=== PATIENT | female | born 1985 | race Caucasian/White ===

== ENCOUNTER 2017-02-04 03:02 | Emergency (ER) | payer BC ==
--- NOTE | 2017-02-04 03:27 | PDOC ---
History of Present Illness - General History Source: Patient Exam Limitations: No Limitations - History of Present Illness Initial Comments: 02/04/17 03:36 The patient is a 34-year-old female, with a significant past medical history of connective tissue disease, who presents to the ED with abdominal pain that started last night. Pt reports that she went to the movies last night and had some popcorn. Her pain began around 10 PM last night. Her pain is located in her lower abdomen diffusely. She denies any recent sick contacts. Pts friend also had some of the popcorn and does not report having any symptoms. Pts last period was earlier this month. She reports having two normal stools today. The patient denies having any urinary symptoms. <Yeni Herron - Last Filed: 02/04/17 03:36> - General History Source: Patient <SandipRonald rodriguez - Last Filed: 02/04/17 06:33> - General Chief Complaint: Pain, Acute Stated Complaint: ABDOMINAL PAIN Time Seen by Provider: 02/04/17 03:24 Past History <Yeni Herron - Last Filed: 02/04/17 03:36> - Psycho/Social/Smoking Cessation Hx Suicidal Ideation: No Smoking History: Never smoked Have you smoked in the past 12 months: No Information on smoking cessation initiated: No Hx Alcohol Use: No Drug/Substance Use Hx: No <Ronald Jones - Last Filed: 02/04/17 06:33> - Past Medical History Allergies/Adverse Reactions: Allergies Allergy/AdvReac Type Severity Reaction Status Date / Time No Known Allergies Allergy Verified 02/04/17 03:22 Home Medications: Ambulatory Orders Celecoxib 0 mg PO DAILY 02/04/17 Ibuprofen 800 mg PO TID #30 tablet 02/04/17 Oxycodone HCl/Acetaminophen [Percocet 5-325 mg Tablet] 1 - 2 tab PO Q6H #20 tablet MDD 4 02/04/17 Review of Systems - Review of Systems Able to Perform ROS?: Yes Comments:: 02/04/17 03:36 CONSTITUTIONAL: Absent: fever, chills, diaphoresis, generalized weakness, malaise, loss of appetite HEENT: Absent: rhinorrhea, nasal congestion, throat pain, throat swelling, difficulty swallowing, mouth swelling, ear pain, eye pain, visual Changes CARDIOVASCULAR: Absent: chest pain, syncope, palpitations, irregular heart rate, lightheadedness , peripheral edema RESPIRATORY: Absent: cough, shortness of breath, dyspnea with exertion, orthopnea, wheezing, stridor, hemoptysis GASTROINTESTINAL: Present: abdominal pain Absent: abdominal distension, nausea, vomiting, diarrhea, constipation, melena, hematochezia GENITOURINARY: Absent: dysuria, frequency, urgency, hesitancy, hematuria, flank pain, genital pain MUSCULOSKELETAL: Absent: myalgia, arthralgia, joint swelling SKIN: Absent: rash, itching, pallor HEMATOLOGIC/IMMUNOLOGIC: Absent: easy bleeding, easy bruising, lymphadenopathy, frequent infections ENDOCRINE: Absent: unexplained weight gain, unexplained weight loss, heat intolerance, cold intolerance NEUROLOGIC: Absent: headache, focal weakness or paresthesias, dizziness, unsteady gait, seizure, mental status changes, bladder or bowel incontinence PSYCHIATRIC: Absent: anxiety, depression, suicidal or homicidal ideation, hallucinations. <Yeni Herron - Last Filed: 02/04/17 03:36> *Physical Exam - Vital Signs Last Vital Signs Temp Pulse Resp BP Pulse Ox 98.7 F 80 20 135/78 99 02/04/17 03:22 02/04/17 03:22 02/04/17 03:22 02/04/17 03:22 02/04/17 03:22 - Physical Exam Comments: 02/04/17 03:37 GENERAL: +Mild distress. Well developed, well nourished. Awake and alert. Normocephalic, atraumatic. PERRLA, EOMI. No conjunctival pallor. Sclera are non- icteric. Moist mucous membranes. Oropharynx is clear. NECK: Supple. Full ROM. No JVD. Carotid pulses 2+ and symmetric, without bruits. No thyromegaly. No lymphadenopathy. CARDIOVASCULAR: Regular rate and rhythm. No murmurs, rubs, or gallops. Distal pulses are 2+ and symmetric. PULMONARY: No evidence of respiratory distress. Lungs clear to auscultation bilaterally. No wheezing, rales or rhonchi. ABDOMINAL: +Abdomen is minimally tender. Soft. Non-distended. No rebound or guarding. No organomegaly. Normoactive bowel sounds. MUSCULOSKELETAL Normal range of motion at all joints. No bony deformities or tenderness. No CVA tenderness. EXTREMITIES: No cyanosis. No clubbing. No edema. No calf tenderness. SKIN: Warm and dry. Normal capillary refill. No rashes. No jaundice. NEUROLOGICAL: Alert, awake, appropriate. PSYCHIATRIC: Cooperative. Good eye contact. Appropriate mood and affect. <Yeni Herron - Last Filed: 02/04/17 03:36> - Vital Signs Last Vital Signs Temp Pulse Resp BP Pulse Ox 98.7 F 80 20 135/78 99 02/04/17 03:22 02/04/17 03:22 02/04/17 03:22 02/04/17 03:22 02/04/17 03:22 <Ronald Jones - Last Filed: 02/04/17 06:33> ED Treatment Course - LABORATORY CBC & Chemistry Diagram: 02/04/17 04:21 02/04/17 04:21 <Ronald Jones - Last Filed: 02/04/17 06:33> Medical Decision Making - Medical Decision Making 02/04/17 06:30 Dr. Jones: The scribe's documentation has been prepared under my direction and personally reviewed by me in its entirery. I confirm that the note above accurately reflects all work, treatment, procedures, and medical decision making performed by me. <Ronald Jones - Last Filed: 02/04/17 06:33> *DC/Admit/Observation/Transfer - Attestations Scribe Attestion: 02/04/17 03:40 Documentation prepared by Yeni Herron, acting as medical typist for Ronald Jones MD. <Yeni Herron - Last Filed: 02/04/17 03:36> - Discharge Dispostion Admit: No <Ronald Jones - Last Filed: 02/04/17 06:33> Diagnosis at time of Disposition: Umbilical hernia Qualifiers: Obstruction and gangrene presence: without obstruction or gangrene Qualified Code(s): K42.9 - Umbilical hernia without obstruction or gangrene - Discharge Dispostion Disposition: HOME Condition at time of disposition: Stable - Prescriptions Prescriptions: Ibuprofen 800 mg PO TID #30 tablet Oxycodone HCl/Acetaminophen [Percocet 5-325 mg Tablet] 1 - 2 tab PO Q6H #20 tablet MDD 4 - Referrals Referrals: Simone Emmanuel MD [Staff Physician] - Chapincito Alvarez MD [Staff Physician] - - Patient Instructions Printed Discharge Instructions: DI Umbilical Hernia-Child - Post Discharge Activity Work/School Note: Back to Work
[2017-02-04] MEDS ORDERED: ONDANSETRON 4 MG/2 ML VIAL IVPUSH STA (03:28)
[2017-02-04] MEDS ORDERED: SODIUM CHLORIDE 1,000 ML IV STA (03:28)
[2017-02-04] MEDS ORDERED: PANTOPRAZOLE SODIUM 40 MG in SODIUM CHLORIDE 100 ML IVPB ONE (03:28)
[2017-02-04] MEDS ORDERED: ONDANSETRON 4 MG/2 ML VIAL ONE (03:52)
[2017-02-04] MEDS ORDERED: PANTOPRAZOLE SODIUM 100 ML IVPB ONE (03:52)
[2017-02-04 04:11] VITALS: BP 135/78; PULSE 80; TEMP 98.7; BMI 34.9
[2017-02-04] MEDS ORDERED: KETOROLAC TROMETHAMINE 30 MG/1 ML VIAL IVPUSH ONE (04:21)
[2017-02-04] MEDS ORDERED: KETOROLAC TROMETHAMINE 30 MG/1 ML VIAL ONE (04:23)
[2017-02-04 04:27] LABS: BASOPHIL 0.2 % (0-2.0); EOSINOPHIL 0.8 % (0-4.5); MCH 27.1 pg (25.7-33.7); MCHC 32.6 g/dl (32.0-36.0); MEAN CELL VOLUME 83.4 fl (80-96); MEAN PLT VOLUME 8.7 fl (7.5-11.1); NEUTROPHILS 80.2 % (42.8-82.8); PLATELET COUNT 270 K/MM3 (134-434); RDW 13.1 % (11.6-15.6); WHITE BLOOD COUNT 11.9 K/mm3 (4.0-10.0)
[2017-02-04] MEDS ORDERED: morphine CARPU-JECT 2 MG/1 ML DISP.SYRIN IVPUSH ONE (04:47)
[2017-02-04 04:48] LABS: AMYLASE 76 U/L (25-115); ANION GAP 9 (8-16); BILIRUBIN,TOTAL 0.3 mg/dL (0.2-1.0); CALCIUM 8.7 mg/dL (8.5-10.1); CO2 25 mmol/L (21-32); CREATININE 0.7 mg/dL (0.55-1.02); GLUCOSE,RANDOM 127 mg/dL (74-106); MAGNESIUM 2.2 mg/dL (1.8-2.4); SGOT/AST 17 U/L (15-37); SGPT/ALT 27 U/L (12-78); TOT PROT 8.2 g/dl (6.4-8.2)
[2017-02-04 04:49] LABS: ALK PHOS 102 U/L (45-117)
[2017-02-04] MEDS ORDERED: morphine CARPU-JECT 2 MG/1 ML DISP.SYRIN ONE (04:50)
[2017-02-04] MEDS ORDERED: morphine CARPU-JECT 4 MG/1 ML DISP.SYRIN ONE (04:50)
[2017-02-04 06:26] LABS: URINE APPEARANCE CLEAR; URINE BILIRUBIN NEGATIVE (NEGATIVE); URINE BLOOD NEGATIVE (NEGATIVE); URINE COLOR COLORLESS; URINE GLUCOSE (UA) NEGATIVE (NEGATIVE); URINE KETONE NEGATIVE (NEGATIVE); URINE LEUK ESTERASE NEGATIVE (NEGATIVE); URINE NITRITE NEGATIVE (NEGATIVE); URINE PROTEIN NEGATIVE (NEGATIVE); URINE UROBILINOGEN NEGATIVE mg/dL (0.2-1.0)
== END 2017-02-04 06:41 | disposition home or self-care (01) ==
LOC: JER 03:02
PROC: 3E033GC Introduction of Other Therapeutic Substance into Peripheral Vein, Percutaneous Approach (ICD-10-PCS; principal; 2017-02-04)
PROC: 3E033NZ Introduction of Analgesics, Hypnotics, Sedatives into Peripheral Vein, Percutaneous Approach (ICD-10-PCS; 2017-02-04)
PROC: 3E033GC Introduction of Other Therapeutic Substance into Peripheral Vein, Percutaneous Approach (ICD-10-PCS; 2017-02-04)
PROC: 3E0333Z Introduction of Anti-inflammatory into Peripheral Vein, Percutaneous Approach (ICD-10-PCS; 2017-02-04)
DX: K42.9 Umbilical hernia without obstruction or gangrene (principal)
CPT/HCPCS: 36415; 74176-TC; 80053; 81003; 82150; 83690; 83735; 84703; 85025; 99283-25

== ENCOUNTER 2017-03-06 17:41 | Emergency (ER) | payer BC ==
[2017-03-06 18:15] LABS: PH,URINE 8.5 (4.5-8); URINE APPEARANCE Clear; URINE BILIRUBIN Negative (NEGATIVE); URINE BLOOD 1+ (NEGATIVE); URINE GLUCOSE (UA) Negative (NEGATIVE); URINE KETONE Negative (NEGATIVE); URINE LEUK ESTERASE Negative (NEGATIVE); URINE NITRITE Negative (NEGATIVE); URINE UROBILINOGEN 0.2 (0.2-1.0)
[2017-03-06 18:16] LABS: URINE COLOR YELLOW; URINE PROTEIN 1+ (NEGATIVE)
[2017-03-06 18:22] VITALS: BP 127/88; PULSE 90; TEMP 97.9; BMI 34.9
--- NOTE | 2017-03-06 18:30 | PDOC ---
History of Present Illness - General Chief Complaint: Pain Stated Complaint: ABD PAIN Time Seen by Provider: 03/06/17 18:04 - History of Present Illness Initial Comments: 03/06/17 18:35 Ms. Faye is a 31 year old female with a significant past medical history of Mixed connective tissue diseas ([id number] positive) who presents to the emergency department with a recent history of rash and fevers starting tuesday after sun exposure on sulfasalazine on a recent vacation and stomach pain today. She says that the rash and fever began to hotrencia yesterday after she was started on a prednisone taper at urgent care. Today she represented to the urgent care for increasing abdominal pain where she was given 60mg of solumedrol and told to present to the ER for abdominal pain F/U. The patient denies chest pain, shortness of breath, headache and dizziness. Denies fever, chills, nausea, vomit, diarrhea and constipation. Denies dysuria, frequency, urgency and hematuria. Allergies: Sulfasalazine Past surgical history: None Social history: Denies PMD - Juany Hernandez Past History - Past Medical History Allergies/Adverse Reactions: Allergies Allergy/AdvReac Type Severity Reaction Status Date / Time sulfasalazine AdvReac Severe SUN BURN Verified 03/06/17 18:15 Home Medications: Ambulatory Orders Cyclobenzaprine HCl [Flexeril 10 mg] 10 mg PO BID PRN 03/06/17 Omeprazole 10 mg PO DAILY 03/06/17 Prednisone [Deltasone] 20 mg PO ASDIR 03/06/17 - Psycho/Social/Smoking Cessation Hx Suicidal Ideation: No Smoking History: Never smoked Have you smoked in the past 12 months: No Hx Alcohol Use: No Drug/Substance Use Hx: No Substance Use Type: None Review of Systems - Review of Systems Comments:: 03/06/17 18:35 GENERAL/CONSTITUTIONAL: No fever or chills. No weakness. HEAD, EYES, EARS, NOSE AND THROAT: No change in vision. No ear pain or discharge. No sore throat. CARDIOVASCULAR: No chest pain or shortness of breath RESPIRATORY: No cough, wheezing, or hemoptysis. GASTROINTESTINAL: +Increasing stomach pain throughout the day from 1/10 pain upon waking up to currently feeling like someone is "drilling in" to her stomach. No nausea, vomiting, diarrhea or constipation. GENITOURINARY: No dysuria, frequency, or change in urination. MUSCULOSKELETAL: No joint or muscle swelling or pain. No neck or back pain. SKIN: No rash NEUROLOGIC: No headache, vertigo, loss of consciousness, or change in strength/ sensation. ENDOCRINE: No increased thirst. No abnormal weight change HEMATOLOGIC/LYMPHATIC: No anemia, easy bleeding, or history of blood clots. ALLERGIC/IMMUNOLOGIC: Rash along both arms where she says she was exposed to the sun. Is not itchy or painful and has improved from yesterday. *Physical Exam - Physical Exam Comments: 03/06/17 18:35 GENERAL: Awake, alert, and fully oriented, in no acute distress HEAD: No signs of trauma, normocephalic, atraumatic EYES: PERRLA, EOMI, sclera anicteric, conjunctiva clear ENT: Auricles normal inspection, hearing grossly normal, nares patent, oropharynx clear without exudates. Moist mucosa NECK: Normal ROM, supple, no lymphadenopathy, JVD, or masses LUNGS: No distress, speaks full sentences, clear to auscultation bilaterally HEART: Regular rate and rhythm, normal S1 and S2, no murmurs, rubs or gallops, peripheral pulses normal and equal bilaterally. ABDOMEN: +Tender in RUQ, RLQ, LUQ. Soft, normoactive bowel sounds. No guarding , no rebound. No masses EXTREMITIES: Normal inspection, Normal range of motion, no edema. No clubbing or cyanosis. NEUROLOGICAL: Cranial nerves II through XII grossly intact. Normal speech, normal gait, no focal sensorimotor deficits SKIN: +Rash noted along both arms where she was exposed to sun. Warm, Dry. Medical Decision Making - Medical Decision Making 03/06/17 18:53 Patient presents primarily for abdominal pain. Has had similar presentation with complete abdominal workup approximately 1 month ago. Will draw cbc/cmp/ lipase/ekg to r/o new pathology. 03/06/17 19:03 Patient handed off to incoming team for follow-up *DC/Admit/Observation/Transfer Diagnosis at time of Disposition: Abdominal pain Qualifiers: Abdominal location: generalized Qualified Code(s): R10.84 - Generalized abdominal pain - Discharge Dispostion Condition at time of disposition: Good - Attestations Physician Attestion: 03/06/17 18:55 I, Dr. Navdeep Brito, attest that this document has been prepared under my direction and personally reviewed by me in its entirety. I further attest, that it accurately reflects all work, treatment, procedures and medical decision -making performed by me.
[2017-03-06] MEDS ORDERED: FAMOTIDINE 20 MG/50 ML IVPB 50 ML IVPB ONE ×2 (18:48→18:56)
[2017-03-06] MEDS ORDERED: SODIUM CHLORIDE 1,000 ML IV STA (18:49)
[2017-03-06] MEDS ORDERED: MAG HYDROX/AL HYDROX/SIMETH 30 ML UNIT-DOSE CUP PO ONE (18:49)
--- NOTE | 2017-03-06 18:49 | PDOC ---
Attending Attestation - Resident Resident Name: Navdeep Brito - ED Attending Attestation I have performed the following: I have examined & evaluated the patient, The case was reviewed & discussed with the resident, I agree w/resident's findings & plan, Exceptions are as noted - HPI HPI: 03/06/17 18:48 Agree with the resident's HPI as documented in the electronic medical record. - Physicial Exam PE: 03/06/17 18:48 Agree with the resident's physical examination as documented in the electronic medical record. - Medical Decision Making 03/06/17 18:48 31-year-old female with history of connective tissue disease and photosensitivity reaction to his been on prednisone for the past several days presents to the emergency department from urgent care for evaluation of epigastric and left upper quadrant pain with no nausea, vomiting, diarrhea and all other review of systems are negative. Differential diagnosis includes but is not limited to: Gastritis, GERD, peptic ulcer disease, atypical presentation of ACS, electrolyte abnormality, toxic/metabolic derangement. Plan: 1. Labs 2. IV Pepcid and Maalox 3. IV fluids for hydration 4. Urine analysis and urine 5. Observe and reevaluate
[2017-03-06] MEDS ORDERED: MAG HYDROX/AL HYDROX/SIMETH 30 ML UNIT-DOSE CUP ONE (18:56)
[2017-03-06 19:06] LABS: URINE MUCUS 1+; URINE WBC 0-3 (3-5)
[2017-03-06 19:09] LABS: BASOPHIL 0.2 % (0-2.0); MCH 26.8 pg (25.7-33.7); MCHC 33.2 g/dl (32.0-36.0); MEAN CELL VOLUME 80.8 fl (80-96); MEAN PLT VOLUME 7.9 fl (7.5-11.1); NEUTROPHILS 85.5 % (42.8-82.8); PLATELET COUNT 326 K/MM3 (134-434); RDW 12.4 % (11.6-15.6); WHITE BLOOD COUNT 12.7 K/mm3 (4.0-10.8)
--- NOTE | 2017-03-06 19:13 | PDOC ---
*Physical Exam - Vital Signs Last Vital Signs Temp Pulse Resp BP Pulse Ox 97.9 F 90 16 127/88 98 03/06/17 17:42 03/06/17 17:42 03/06/17 17:42 03/06/17 17:42 03/06/17 17:42 <Nova Moreira - Last Filed: 03/06/17 21:50> - Vital Signs Last Vital Signs Temp Pulse Resp BP Pulse Ox 97.9 F 90 16 127/88 98 03/06/17 17:42 03/06/17 17:42 03/06/17 17:42 03/06/17 17:42 03/06/17 17:42 <Lanie Howard - Last Filed: 03/07/17 05:27> ED Treatment Course - LABORATORY CBC & Chemistry Diagram: 03/06/17 18:50 03/06/17 18:50 - ADDITIONAL ORDERS Additional order review: Laboratory Results 03/06/17 03/06/17 03/06/17 18:50 18:50 18:10 Sodium 132 L Potassium 4.5 Chloride 101 Carbon Dioxide 26 Anion Gap 5 L BUN 8 Creatinine 0.6 Creat Clearance w eGFR > 60 Random Glucose 121 H Calcium 8.7 Total Bilirubin < 0.3 AST 32 ALT 97 H Alkaline Phosphatase 81 Total Protein 7.8 Albumin 3.8 Lipase 31 Urine Color Yellow Urine Appearance Clear Urine pH 8.5 H Ur Specific [place] 1.015 Urine Protein 1+ H Urine Glucose (UA) Negative Urine Ketones Negative Urine Blood 1+ Urine Nitrite Negative Urine Bilirubin Negative Urine Urobilinogen 0.2 Ur Leukocyte Esterase Negative Urine RBC 4-6 Urine WBC 0-3 Ur Epithelial Cells 5-10 Urine Mucus 1+ Urine HCG, Qual Negative 03/06/17 18:50 RBC 4.86 MCV 80.8 MCHC 33.2 RDW 12.4 MPV 7.9 Neutrophils % 85.5 H Lymphocytes % 11.1 Monocytes % 2.2 L Eosinophils % 1.0 Basophils % 0.2 - RADIOLOGY Radiograph Interpretation: 03/06/17 21:48 - Medications Given in the ED: ED Medications Discontinued Medications Generic Name Dose Route Start Last Admin Trade Name Freq PRN Reason Stop Dose Admin Al Hydroxide/Mg Hydroxide 30 ml 03/06/17 18:49 03/06/17 18:55 Mylanta Oral Suspension - PO 03/06/17 18:50 30 ml ONCE ONE Administration Famotidine/Sodium Chloride 50 mls @ 100 mls/hr 03/06/17 18:48 03/06/17 19:00 Pepcid 20 Mg Premixed Ivpb - IVPB 03/06/17 19:17 100 mls/hr ONCE ONE Administration Sodium Chloride 1,000 mls @ 1,000 mls/hr 03/06/17 18:49 03/06/17 18:50 Normal Saline - IV 03/06/17 19:48 1,000 mls/hr ASDIR STA Administration Pantoprazole Sodium 40 mg/ 100 mls @ 200 mls/hr 03/06/17 20:19 03/06/17 20:28 Sodium Chloride IVPB 03/06/17 20:48 200 mls/hr ONCE ONE Administration <Nova Moreira - Last Filed: 03/06/17 21:50> - LABORATORY CBC & Chemistry Diagram: 03/06/17 18:50 03/06/17 18:50 - ADDITIONAL ORDERS Additional order review: Laboratory Results 03/06/17 18:10 Urine Color Yellow Urine Appearance Clear Urine pH 8.5 H Ur Specific [place] 1.015 Urine Protein 1+ H Urine Glucose (UA) Negative Urine Ketones Negative Urine Blood 1+ Urine Nitrite Negative Urine Bilirubin Negative Urine Urobilinogen 0.2 Ur Leukocyte Esterase Negative Urine RBC 4-6 Urine WBC 0-3 Ur Epithelial Cells 5-10 Urine Mucus 1+ Urine HCG, Qual Negative 03/06/17 18:50 RBC 4.86 MCV 80.8 MCHC 33.2 RDW 12.4 MPV 7.9 Neutrophils % 85.5 H Lymphocytes % 11.1 Monocytes % 2.2 L Eosinophils % 1.0 Basophils % 0.2 - Medications Given in the ED: ED Medications Discontinued Medications Generic Name Dose Route Start Last Admin Trade Name Freq PRN Reason Stop Dose Admin Al Hydroxide/Mg Hydroxide 30 ml 03/06/17 18:49 03/06/17 18:55 Mylanta Oral Suspension - PO 03/06/17 18:50 30 ml ONCE ONE Administration <Lanie Howard - Last Filed: 03/07/17 05:27> Progress Note - Progress Note Progress Note: Care of this patient received from Dr. Ojeda and Dr. Brito. Briefly, this 31-year-old woman with mixed connective tissue disease presented with epigastric and upper abdominal pain without associated symptoms. Of note, the patient had been recently been on prednisone course. Laboratory evaluation notable for mild elevation of white blood cell count (12, 700). ALT is mildly elevated at 97; remainder of the chemistry profile is essentially normal. Lipase normal. Twelve-lead electrocardiogram shows normal sinus rhythm at 93 bpm; there is left axis deviation and incomplete right bundle branch block. There are no acute ST or T-wave abnormalities. Patient complaining of persistent epigastric pain despite antacids/ famotidine IV . Patient reexamined. On my exam, patient had right upper quadrant tenderness as well as epigastric tenderness. Although the patient had no evidence of cholecystitis, cholelithiasis or other biliary tract abnormality on CT last month, because of her tenderness and mildly elevated white blood cell count now , an ultrasound of the gallbladder performed. While awaiting performance of the ultrasound, patient received Protonix 40 mg IV Gallbladder ultrasound negative for acute biliary pathology (although carbon brushes assembler reported positive Barragan sign during exam) Results discussed with the patient. Clinical presentation most consistent with acute gastritis.. Patient requested small amount of pain medication to "take the edge off" the pain. Patient given morphine 2 mg IV. Patient reported significant relief in pain. Patient discharged with prescription for Nexium 40 mg daily (PPI that is covered by her insurance). Meanwhile, she should avoid alcohol/smoking ( patient denies using either), aspirin, and NSAIDs,. The patient already has a curing finisher with whom she should follow-up within the next week. <Lanie Howard - Last Filed: 03/07/17 05:27> *DC/Admit/Observation/Transfer <Nova Moreira - Last Filed: 03/06/17 21:50> <Lanie Howard - Last Filed: 03/07/17 05:27> Diagnosis at time of Disposition: Abdominal pain Qualifiers: Abdominal location: epigastric Qualified Code(s): R10.13 - Epigastric pain Acute gastritis Qualifiers: Gastritis type: unspecified gastritis Gastritis bleeding: without bleeding Qualified Code(s): K29.00 - Acute gastritis without bleeding - Discharge Dispostion Disposition: HOME Condition at time of disposition: Stable - Prescriptions Prescriptions: Esomeprazole Mag Trihydrate [NexIUM for SUSP] 40 mg PO DAILY #30 packet - Patient Instructions Printed Discharge Instructions: Gastritis Additional Instructions: Nexium 40 mg daily Avoid alcohol/acidic or spicy foods Avoid aspirin/ibuprofen/naproxen avoid smoking/alcohol see your curing finisher within 1 week Follow-up with your general medical doctor within the next 7-10 days Return to ER if you have severe, persistent abdominal pain or experience vomiting
[2017-03-06 19:18] LABS: ALBUMIN 3.8 g/dl (3.5-5.0); ALK PHOS 81 U/L (32-92); ANION GAP 5 (8-16); CALCIUM 8.7 mg/dl (8.4-10.2); CO2 26 mmol/L (22-28); CREATININE 0.6 mg/dl (0.6-1.3); GLUCOSE,RANDOM 121 mg/dl (74-106); SGOT/AST 32 U/L (10-42); SGPT/ALT 97 U/L (10-40); TOT PROT 7.8 g/dl (6.4-8.3)
[2017-03-06 19:56] LABS: BILIRUBIN,TOTAL < 0.3 mg/dl (0.2-1.0)
[2017-03-06] MEDS ORDERED: PANTOPRAZOLE SODIUM 40 MG in SODIUM CHLORIDE 100 ML IVPB ONE (20:19)
[2017-03-06] MEDS ORDERED: PANTOPRAZOLE SODIUM 40 MG VIAL ONE (20:22)
[2017-03-06] MEDS ORDERED: morphine CARPU-JECT 2 MG/1 ML DISP.SYRIN IVPUSH ONE (21:59)
[2017-03-06] MEDS ORDERED: morphine CARPU-JECT 2 MG/1 ML DISP.SYRIN ONE (22:01)
--- NOTE | 2017-03-07 19:15 | EKG ---
Test Reason : Blood Pressure : / mmHG Vent. Rate : 093 BPM Atrial Rate : 093 BPM P-R Int : 174 ms QRS Dur : 102 ms QT Int : 358 ms P-R-T Axes : 051 -30 013 degrees QTc Int : 445 ms SINUS RHYTHM INCOMPLETE RIGHT BUNDLE BRANCH BLOCK ABNORMAL ECG NO PREVIOUS ECGS AVAILABLE Confirmed by VIRGEN VERDUZCO MD ([id number]) on 03/07/2017 7:15:19 PM Referred By: NANCY Confirmed By:VIRGEN VERDUZCO MD
== END 2017-03-06 23:10 | disposition home or self-care (01) ==
LOC: FER 17:41
PROC: 3E033GC Introduction of Other Therapeutic Substance into Peripheral Vein, Percutaneous Approach (ICD-10-PCS; principal; 2017-03-06)
PROC: 3E033NZ Introduction of Analgesics, Hypnotics, Sedatives into Peripheral Vein, Percutaneous Approach (ICD-10-PCS; 2017-03-06)
PROC: 3E0337Z Introduction of Electrolytic and Water Balance Substance into Peripheral Vein, Percutaneous Approach (ICD-10-PCS; 2017-03-06)
DX: R10.84 Generalized abdominal pain (principal); M35.1 Other overlap syndromes
CPT/HCPCS: 36415; 76705-TC; 80053; 81003; 81015; 83690; 84703; 85025; 93005; 99282-25